=== PATIENT | male | born 1970 | race Caucasian/White ===

== ENCOUNTER 2017-10-01 12:02 | Inpatient (IN) | payer OTHER ==
[2017-10-01] VITALS (7 sets, daily range): BP systolic 121–153; BP diastolic 78–108
[~2017-10-01] VITALS: Ht 188 cm; Wt 100.7 kg
[2017-10-01] MEDS ORDERED: TENORMIN50 MG PO (12:14)
[2017-10-01 12:22] LABS: HEMATOCRIT 41.4 % (42.0-52.0); HEMOGLOBIN 14.5 gm/dL (14.0-18.0); MCH 35.2 pg (26.0-34.0); MCV 100.6 fL (80.0-100.0); MPV 9.9 fl. (7.2-11.1); NUCLEATED RBCS 0 /100WBC; PLATELET COUNT* 100 thou/uL (150-400); RBC 4.12 mil/uL (4.50-6.00); RDW-CV 15.7 % (10.5-14.5); WBC 9.3 thou/uL (4.0-11.0)
[2017-10-01 12:29] LABS: ANION GAP 16 mmol/L (7-16); BUN 6 mg/dL (7-18); CALCIUM 8.5 mg/dL (8.5-10.1); CHLORIDE 95 mmol/L (98-107); CO2 25 mmol/L (21-32); GLUCOSE 109 mg/dL (70-99); SODIUM 136 mmol/L (136-145)
[2017-10-01 12:32] LABS: POTASSIUM 2.8 mmol/L (3.5-5.1)
[2017-10-01 12:33] LABS: ALCOHOL < 10 mg/dL (<10)
[2017-10-01 12:34] LABS: SALICYLATE < 2.8 mg/dL (2.8-20.0)
[2017-10-01 12:37] LABS: ALBUMIN 3.3 g/dL (3.4-5.0); ALKALINE PHOSPHATASE 218 U/L (46-116); SGOT 109 U/L (15-37); SGPT 45 U/L (30-65); TOTAL BILIRUBIN 3.1 mg/dL (<0.1-1.0); TOTAL PROTEIN 7.9 g/dL (6.4-8.2); TROPONIN-I LEVEL <0.06 ng/mL (<0.06)
[2017-10-01 12:43] LABS: ABSOLUTE LYMPHOCYTES 0.7 thou/uL (0.8-5.3); ABSOLUTE MONOCYTES 0.9 thou/uL (0.0-1.2); ABSOLUTE NEUTROPHILS 7.6 thou/uL (1.6-8.1); PLATELET ESTIMATE ADEQUATE
--- NOTE | 2017-10-01 14:58 | EKG ---
[place] [address] ELECTROCARDIOGRAM REPORT Name: CASSANDRA JASMINE Room: [address] ADM IN [facility]#: [id number] Admission: 10/01/17 Attend Phys: Will Daly MD Discharge: Date of : 70 Report #: [id number] THIS REPORT FOR: //name// [facility] ED Test Date: 2017-10-01 Test Time: 12:02:08 Pat Name: CASSANDRA JASMINE Department: Room: [facility] Gender: M Soil Expert: Alma Rosa WATERMAN : 1970 Requested By: Mark Wright Order Number: [id number] MD: Edgardo Hicks Measurements Intervals [place] Rate: 116 P: 0 MD: 34 QRS: 51 QRSD: 101 T: 35 QT: 340 QTc: 473 Interpretive Statements Sinus tachycardia Probable septal infarct, old Artifact in lead(s) I,III,aVR,aVL,V1,V2 No previous ECG available for comparison Electronically Signed On 10-01-2017 14:58:10 CARDIAC RN by Edgardo Hicks [email or web address] <ELECTRONICALLY SIGNED> By: Edgardo Hicks MD, [facility] 10/01/17 1458 1202 1202 Edgardo Hicks MD, [facility] /EPI
[2017-10-01 15:02] LABS: INR 1.3; PROTIME 12.9 Seconds (9.20-11.50)
[2017-10-01 15:04] LABS: DIRECT BILIRUBIN 1.5 mg/dL (<0.1-0.3); TOTAL BILIRUBIN 3.2 mg/dL (<0.1-1.0)
[2017-10-02] VITALS (17 sets, daily range): BP systolic 96–140; BP diastolic 55–105
[2017-10-02 05:17] LABS: HEMATOCRIT 35.3 % (42.0-52.0); MCHC 34.9 g/dL (28.0-37.0); MCV 100.3 fL (80.0-100.0); MPV 10.1 fl. (7.2-11.1); RBC 3.52 mil/uL (4.50-6.00); RDW-CV 15.1 % (10.5-14.5); WBC 6.3 thou/uL (4.0-11.0)
[2017-10-02 05:32] LABS: ALBUMIN 2.6 g/dL (3.4-5.0); CALCIUM 7.4 mg/dL (8.5-10.1); CREATININE 0.6 mg/dL (0.6-1.3); TOTAL BILIRUBIN 2.3 mg/dL (<0.1-1.0); TOTAL PROTEIN 6.1 g/dL (6.4-8.2)
[2017-10-02 05:44] LABS: MAGNESIUM 0.9 mg/dL (1.8-2.4); POTASSIUM 2.7 mmol/L (3.5-5.1)
[2017-10-02 06:00] LABS: HEMOGLOBIN 12.3 gm/dL (14.0-18.0)
[2017-10-03 03:49] VITALS: BP 114/70
[2017-10-03 05:06] LABS: ALBUMIN 2.9 g/dL (3.4-5.0); CALCIUM 8.2 mg/dL (8.5-10.1); CREATININE 0.7 mg/dL (0.6-1.3); MAGNESIUM 1.9 mg/dL (1.8-2.4); POTASSIUM 3.7 mmol/L (3.5-5.1); TOTAL BILIRUBIN 2.2 mg/dL (<0.1-1.0)
[2017-10-03 08:00] VITALS: BP 102/69
[2017-10-03 11:54] VITALS: BP 128/76
[2017-10-03 18:56] VITALS: BP 145/96
[2017-10-03 20:54] VITALS: BP 109/72
[2017-10-04 00:11] VITALS: BP 125/81
[2017-10-04 04:00] VITALS: BP 133/86
[2017-10-04 04:59] LABS: HEMATOCRIT 34.6 % (42.0-52.0); MCHC 34.8 g/dL (28.0-37.0); MCV 100.7 fL (80.0-100.0); MPV 9.5 fl. (7.2-11.1); RBC 3.43 mil/uL (4.50-6.00); RDW-CV 15.1 % (10.5-14.5); WBC 9.6 thou/uL (4.0-11.0)
[2017-10-04 05:56] LABS: ALBUMIN 2.6 g/dL (3.4-5.0); CREATININE 0.8 mg/dL (0.6-1.3); MAGNESIUM 1.4 mg/dL (1.8-2.4); POTASSIUM 3.2 mmol/L (3.5-5.1); TOTAL BILIRUBIN 2.3 mg/dL (<0.1-1.0)
[2017-10-04 08:00] VITALS: BP 104/69; BP 146/72
[2017-10-04 11:58] VITALS: BP 120/87
[2017-10-04 15:31] LABS: MAGNESIUM 2.3 mg/dL (1.8-2.4); POTASSIUM 3.9 mmol/L (3.5-5.1)
[2017-10-04 20:00] VITALS: BP 124/79
[2017-10-05 04:48] LABS: ALBUMIN 2.4 g/dL (3.4-5.0); CALCIUM 8.3 mg/dL (8.5-10.1); CREATININE 0.9 mg/dL (0.6-1.3); MAGNESIUM 1.8 mg/dL (1.8-2.4); POTASSIUM 3.3 mmol/L (3.5-5.1); TOTAL PROTEIN 6.6 g/dL (6.4-8.2)
[2017-10-05 05:02] LABS: HEMATOCRIT 34.7 % (42.0-52.0); MCH 34.9 pg (26.0-34.0); MCHC 34.5 g/dL (28.0-37.0); MCV 101.3 fL (80.0-100.0); RBC 3.43 mil/uL (4.50-6.00)
[2017-10-05 07:30] VITALS: BP 110/67
[2017-10-05 14:51] VITALS: BP 108/71
[2017-10-05 17:09] LABS: HEPATITIS B SURFACE AG Negative (Negative)
[2017-10-06 04:04] LABS: HEMATOCRIT 33.9 % (42.0-52.0); HEMOGLOBIN 11.9 gm/dL (14.0-18.0); INR 1.1; MCH 35.2 pg (26.0-34.0); MCV 100.6 fL (80.0-100.0); PROTIME 10.3 Seconds (9.20-11.50); RBC 3.37 mil/uL (4.50-6.00); RDW-CV 14.9 % (10.5-14.5); WBC 7.9 thou/uL (4.0-11.0)
[2017-10-06 04:08] LABS: ALBUMIN 2.4 g/dL (3.4-5.0); CALCIUM 8.7 mg/dL (8.5-10.1); CREATININE 0.9 mg/dL (0.6-1.3); MAGNESIUM 1.6 mg/dL (1.8-2.4); POTASSIUM 4.2 mmol/L (3.5-5.1); TOTAL BILIRUBIN 1.5 mg/dL (<0.1-1.0); TOTAL PROTEIN 6.8 g/dL (6.4-8.2)
[2017-10-06 07:35] VITALS: BP 104/64
[2017-10-06 09:11] LABS: ANA INTERPRETATION Negative (Negative)
[2017-10-06 11:54] VITALS: BP 104/64
[2017-10-06] MEDS ORDERED: CHLORTHALIDONE25 MG PO (12:38)
[2017-10-06] MEDS ORDERED: LACTULOSE20 GM/30 M PO (12:38)
[2017-10-06] MEDS ORDERED: PRENATAL PO (12:38)
[2017-10-06 13:13] VITALS: BP 104/64
--- NOTE | 2017-10-06 16:13 | CON ---
[address] [address] CONSULTATION Name: CASSANDRA JASMINE Room: [address] IN .R.#: [id number] Admission: 10/01/17 Attend Phys: Will Daly MD Discharge: Date of : 70 Report #: [id number] THIS REPORT FOR: //name// CC: FAM physician/PCP Will Daly DATE OF SERVICE: 10/04/2017 ADDENDUM Consult # is [id number] I personally seen and examined the patient and reviewed labs and imaging studies. The patient with long history of alcoholism, who has elevated LFTs and bilirubin. His LFTs and bilirubin has been down trending since admission. The patient also has had a seizure which he believes he had one many years ago as well. He believes that his previous seizure was blamed on his alcohol use. The patient's imaging studies suggestive of hepatic steatosis and coarse texture of the liver. There may be some fibrosis versus cirrhosis. We recommend alcohol abstinence and followup liver labs that have been ordered. We will make further recommendation once they are available. <ELECTRONICALLY SIGNED> By: Dillon Balbuena MD 10/06/17 1613 1635 [id number] Balbuena MD /nt
--- NOTE | 2017-10-06 16:13 | CON ---
[address] [address] CONSULTATION Name: CASSANDRA JASMINE Room: [address] IN ..#: [id number] Admission: 10/01/17 Attend Phys: Will Daly MD Discharge: Date of : 70 Report #: [id number] THIS REPORT FOR: //name// CC: [facility] physician/PCP Will Daly DICTATED BY: Leila SEPULVEDA The patient is unable to tell me who his PCP is. It is a clinic in [place]. Please note at the time of this dictation, the patient was seen and physically examined by myself. REASON FOR CONSULTATION: Newly diagnosed cirrhosis. HISTORY OF PRESENT ILLNESS: This is a 47-year-old male who presented to the Emergency Room via EMS in which his family found him unresponsive and shaking on the floor earlier in the day. They also noted that he had a bloody lip. They are unsure when or how he lost consciousness. It was noted the patient had a contusion on his head from hitting his head on the table. He has got some left arm pain. The patient has a significant history of alcohol use in which he has difficulty quantifying the amount of alcohol he drinks, which he states that he primarily drinks hard liquor nightly as well as 3-4 beers. He states he will go through more than a fifth of hard liquor in a week at a minimum. The patient states he started drinking back in his mid 20s at this time. He denies ever being told he had anything wrong with his liver. He states he has never had any upper or lower endoscopies done at this time. In obtaining his H and P, the patient is very slow in responding with his responses. ALLERGIES: No known drug allergies. MEDICATIONS: From home include atenolol daily. PAST MEDICAL HISTORY: Seizure disorder, hypertension. PAST SURGICAL HISTORY: Negative. FAMILY HISTORY: Noncontributory. SOCIAL HISTORY: The patient drinks alcohol daily and excessive amounts of both hard liquor and beer and has done this for 20+ years. Denies any tobacco use or any illegal drug use at this time. REVIEW OF SYSTEMS: Twelve-point review of systems is essentially negative except what is mentioned in the HPI. PHYSICAL EXAMINATION: [place] [address] CONSULTATION Name: CASSANDRA JASMINE Ignacio Room: [address]#: [id number] Admission: 10/01/17 Attend Phys: Will Daly MD Discharge: Date of : 70 Report #: [id number] VITAL SIGNS: Temperature 36.9, pulse 94, respirations 19, blood pressure 133/86. HEART: Regular rate and rhythm. LUNGS: Diminished, but clear. ABDOMEN: Rotund with positive bowel sounds in all 4 quadrants with no masses or tenderness noted and an umbilical hernia noted as well. LOWER EXTREMITIES: Showing chronic venous stasis. NEUROLOGIC: He is slow in responding to questions and keeps his eyes closed throughout the entire interaction. A 12-point review of systems is essentially negative except what is mentioned in the HPI. LABORATORY DATA: Hemoglobin is 12, hematocrit 34.6, white count is 9.6. His MCV is 100.7 and platelets are 161. Sodium is 133, potassium 3.2, chloride 97, CO2 of 26, BUN is 5, creatinine 0.8, GFR is 104 and glucose is 82. Total protein is 6 and albumin is 2.6, ammonia is 33, total bilirubin on admission was 3.1, currently 2.3, alkaline phosphatase was 218. He is down to 134, ALT was 45 down to 33 and AST was 109, down to 72. PT is 12.9, INR is 1.3. Ultrasound of the abdomen showed hepatic steatosis with coarsened liver echogenicity texture. IMPRESSION: 1. Elevated LFTs. 2. Alcohol abuse 20+ years. 3. Hepatic steatosis. 4. Seizure with history of seizures in the past. PLAN: 1. Labs, acute hepatitis panel, BRIANNA, AMA and AFP. 2. We will await above results, but likely his abnormal LFTs are related to his alcohol abuse. 3. Discussed with the patient, his need for abstinence for both his liver and for his seizure disorder. 4. Further recommendations to be made once the labs have been made available. Thank you for allowing us to participate in this patient's care. Please do not hesitate to call with any questions in regard to this consult. I personally seen and examined the patient and reviewed labs and imaging studies. The patient with long history of alcoholism, who has elevated LFTs and bilirubin. His LFTs and bilirubin has been down trending since admission. The patient also has had a seizure which he believes he had one many years ago as well. He believes that his previous seizure was blamed on his alcohol use. The patient's imaging studies suggestive of hepatic steatosis and coarse texture of the liver. There may be some fibrosis versus cirrhosis. We recommend [address] [address] CONSULTATION Name: CASSANDRA JASMINE Room: [address] [facility] IN M.R.#: [id number] Admission: 10/01/17 Attend Phys: Will Daly MD Discharge: Date of : 70 Report #: [id number] abstinence and followup liver labs that have been ordered. We will make further recommendation once they are available. <ELECTRONICALLY SIGNED> By: Dillon Balbuena MD 10/06/17 1613 1057 1904Dillon Balbuena MD /nt
--- NOTE | 2017-10-06 19:06 | CON ---
[address] [address] CONSULTATION Name: CASSANDRA JASMINE Room: [address] IN .R.#: [id number] Admission: 10/01/17 Attend Phys: Will Daly MD Discharge: 10/06/17 Date of : 70 Report #: [id number] THIS REPORT FOR: //name// CC: [facility] physician/PCP Will Daly DATE OF SERVICE: 10/02/2017 HISTORY OF PRESENT ILLNESS: This is a 47-year-old male patient who was evaluated for seizure. The patient does not remember much about it, but apparently he had tonic-clonic seizure. He was postictal after that and has returned back to the baseline. He drinks alcohol on a regular basis. He indicates that he had another seizure. He does not remember when was it, but it was somewhere around 10-20 years ago. That was diagnosed as alcohol-related seizure. It is not clear he was withdrawing that time. He had no history of head trauma. REVIEW OF SYSTEMS: Indicate that this patient continues to drink heavy amount of alcohol. He indicates he has cut back, but still drinks 5-6 beers in addition to other hard liquor. He does not smoke and apparently does not use any street drugs. I do not believe he had any drug screen done when he came to the hospital. His 14-point review of system was otherwise unremarkable. PAST MEDICAL HISTORY: Positive for another seizure, which was long time ago. FAMILY HISTORY: Negative for congenital epilepsy. SOCIAL HISTORY: He drinks heavy amount. PHYSICAL EXAMINATION: Indicate that he is alert. He is responsive. He can follow simple commands. His speech, concentration, fund of knowledge and memory is at his baseline. Cranial nerve examination 2-12 is unremarkable. It looks like he has a symmetrical strength, sensation in both sides, but his reflexes are diminished. His position sense is present. His leg skin has some ulceration and depigmentation. Otherwise, he is reasonably well-developed individual who does not have any dysmorphic features of eyes, ears and face. His vision and hearing is adequate. Cardiac examination is unremarkable. No respiratory difficulty was noticed. His last blood pressure is 121/85, respirations 16, pulse is 82. LABORATORY DATA: Indicate low platelets, increased MCV consistent with his history of heavy alcoholism. His potassium is low at 2.7, magnesium is very low at 0.9. His albumin is low at 2.6. ALT and AST is high. His TSH is normal. He did have a CT scan of the head, which does not show any acute changes and the patient's brain [place] [address] CONSULTATION Name: CASSANDRA JASMINE Room: [address] IN ..#: [id number] Admission: 10/01/17 Attend Phys: Will Daly MD Discharge: 10/06/17 Date of : 70 Report #: [id number] IMPRESSION: 1. This was most likely an alcohol related seizure. 2. Brain showing atrophy at such a young age because of heavy alcoholism. 3. Multiple blood abnormalities all indicating sequelae of alcoholism. RECOMMENDATIONS: 1. I told him that since seizures have started, he must stop drinking alcohol altogether. 2. I told him that he need to take seizure precautions and he cannot drive at least for 6 months, both by [place] and [place] law and laws of most of the States. 3. Need to take other seizure precautions, which I discussed further. 4. He needs an MRI, but we can do it on Wednesday. 5. I discussed with him that he can go on medications or just see how he does without any alcohol and he wants to think about it. He is not even sure he can afford the medication. He will let us know. Otherwise nothing specific to add at this patient and this patient's primary thing is that he must stop drinking alcohol and he can have seizure during the withdrawal and he should closely monitor himself. Thank you very much for this referral. <ELECTRONICALLY SIGNED> By: Arden Chung MD 10/06/17 1906 1018 1934Pkay Chung MD /nt
--- NOTE | 2017-10-06 19:06 | EEG ---
[address] [address] EEG STUDY REPORT Name: MITALICASSANDRA Ignacio Room: [address] IN .R.#: [id number] Admission: 10/01/17 Attend Phys: Will Daly MD Discharge: 10/06/17 Date of : 70 Report #: [id number] THIS REPORT FOR: //name// CC: FAM physician/PCP Will Daly DATE OF SERVICE: 10/01/2017 This patient is having seizures. EEG is being done to further evaluate that. A lot of artifact is present, making the EEG interpretation very difficult. Background activity does appear to be about 8 Hz and 30 microvolt. The patient appeared to be asleep during part of this EEG and that is associated with bilaterally symmetrical sleep spindle and vertex sharp waves. No active epileptiform activity was noticed during this record. IMPRESSION: This EEG is masked by a lot of artifact and is very difficult to interpret. It does not appear it is showing any active epileptiform activity. Thank you very much for this referral. <ELECTRONICALLY SIGNED> By: Arden Chung MD 10/06/17 1906 [id number] 1931Pkay Chung MD /nt
== END 2017-10-06 14:30 | disposition home or self-care (01) | DRG 101 ==
LOC: EDBD 12:02 → M.ERS 12:02 → M.TBA-ER 13:32 → M.ICU 13:32 → M.2W 10-02 15:23 → M.3W 10-04 13:45
PROVIDERS: Emergency Medicine Emergency Medical Services; Internal Medicine; Nurse Practitioner Adult Health; ADMIT Internal Medicine
DX: G40.509 Epileptic seizures related to external causes, not intractable, without status epilepticus (principal); F10.231 Alcohol dependence with withdrawal delirium; I87.8 Other specified disorders of veins; D69.6 Thrombocytopenia, unspecified; E87.6 Hypokalemia; K76.0 Fatty (change of) liver, not elsewhere classified; G31.9 Degenerative disease of nervous system, unspecified